=== PATIENT | female | born 1985 | race Caucasian/White ===

== ENCOUNTER 2023-07-12 13:52 | Outpatient (REF) | payer BC, SELFPAY | END 2023-07-12 13:53 | disposition home or self-care (01) | LOC: NPINS 13:52 | PROVIDERS: Visit Provider Dermatology | DX: L40.0 Psoriasis vulgaris (principal) | CPT/HCPCS: 86480 ==

== ENCOUNTER 2024-04-25 09:27 | Outpatient (CLI) | payer BC, SELFPAY | END 2024-04-25 09:28 | disposition home or self-care (01) | PROVIDERS: PCP Nurse Practitioner Family; Visit Provider Nurse Practitioner Family | DX: E78.5 Hyperlipidemia, unspecified (principal); Z12.4 Encounter for screening for malignant neoplasm of cervix | CPT/HCPCS: 80053; 80061; 88142 ==

== ENCOUNTER 2024-09-20 08:55 | Outpatient (CLI) | payer BC, SELFPAY ==
[2024-09-22 13:54] LABS: QuantiFERON Mitogen minus NIL 9.94 IU/mL; QuantiFERON NIL 0.06 IU/mL; Quantiferon Plus TB2 minus NIL 0.01 IU/mL (<=0.34); Quantiferon TB Gold Plus Negative (Negative)
== END 2024-09-20 08:56 | disposition home or self-care (01) ==
PROVIDERS: PCP Nurse Practitioner Family; Visit Provider Physician Assistant
DX: Z11.1 Encounter for screening for respiratory tuberculosis (principal); L40.0 Psoriasis vulgaris; Z79.899 Other long term (current) drug therapy
CPT/HCPCS: 86480